=== PATIENT | male | born 1955 | race Caucasian/White ===

== ENCOUNTER 2023-06-01 06:30 | Outpatient (CLI) | payer OTHER, SELFPAY ==
--- NOTE | 2023-06-01 07:58 | W.ANESCHARGE ---
Anesthesia Charges Start Date/Time Anesthesia Start Date: 06/01/23 Anesthesia Start Time: 07:20 Stop Date/Time Anesthesia Stop Date: 06/01/23 Anesthesia Stop Time: 07:56
--- NOTE | 2023-06-01 09:52 | W.ANESCHARGE ---
Anesthesia Charges Start Date/Time Anesthesia Start Date: 06/01/23 Anesthesia Start Time: 07:20 Stop Date/Time Anesthesia Stop Date: 06/01/23 Anesthesia Stop Time: 07:56
== END 2023-06-01 06:31 | disposition home or self-care (01) ==
LOC: OP CLINIC 06:32
PROVIDERS: PCP Family Medicine; Visit Provider Surgery
DX: Z12.11 Encounter for screening for malignant neoplasm of colon (principal); K63.5 Polyp of colon; K62.1 Rectal polyp; K57.30 Diverticulosis of large intestine without perforation or abscess without bleeding; K64.9 Unspecified hemorrhoids; Z86.010 Personal history of colon polyps
CPT/HCPCS: 00811; 45380; 45385; 88305; J2704

== ENCOUNTER 2025-05-03 18:20 | Emergency (ER) | payer MEDICARE, SELFPAY ==
--- OUTSIDE RECORDS SUMMARY | 2025-05-03 18:23 | XMS_ITS | Clinical Summary ---
Author Organization [employer] [facility] [employer] [facility] Address [address] [place] [address] Care Team Providers Care Litigation Support Analyst Name Role Phone Hakeem Burt MD Primary Care Provider [phone]- [phone] Allergies Active Allergy Reactions Criticality Noted Date Comments Banana *Unknown 05/25/2016 Scratchy throat Cats (Fur, Dander, Saliva) 08/08/2008 Dust Mites 08/08/2008 Mold Extracts 08/08/2008 Pollen Extracts Itching 02/17/2016 Itchy eyes, sneezing Calvin Other - Describe In Comment Field 08/22/2023 Increased mucous production Medications CETIRIZINE 10 MG TAB take 1 tablet (10 mg) by oral route once daily 0 9 Active fluticasone (50 mcg per actuation) nasal solution (FLONASE)Indica tions:Allergic rhinitis, unspecified allergic rhinitis type Inhale 1 Stryker into both nostrils once daily. 1 Bottle 0 5 Active acetaminophen (TYLENOL EXTRA STRGTH) 500 mg tablet Take 1 Tablet (500 mg) by mouth every 6 hours if needed for Pain, Headache or Temp > (Specify). Max acetaminophen dose: 4000mg in 24 hrs. 4 Active sildenafiL, pulm.hypertensi on, (REVATIO) 20 mg tabletIndicatio ns:Erectile dysfunction of organic origin Take 1-3 tablets (20-60 mg) daily as needed. Take 30 minutes to 4 hours before sexual activity. Max 100mg/24hr. 30 Tablet 2 4 Active tamsulosin 0.4 mg capsuleIndicati ons:Gross hematuria,Benig n prostatic hyperplasia, unspecified whether lower urinary tract symptoms present Take 1 Capsule (0.4 mg) by mouth once daily after a meal. 90 Capsule 5 Active Active Problems Problem Noted Date Diagnosed Date Gross hematuria 03/03/2025 Benign prostatic hyperplasia 03/03/2025 Hyperlipidemia 12/24/2020 Overweight 12/24/2020 Right nephrolithiasis 05/07/2016 Pain in joint, shoulder region 2006 Encounters Date Type Department Care Team Description 03/03/2025 2:00 PM CDT Office Visit [facility] [address] [facility] [place] [address] Duncan Fisher MD Hematuria 03/03/2025 Travel from Last 3 Months Immunizations Immunization Administration Dates Next Due AMB INFLUENZA, IIV4 (AGE=>6M OS) MDV (Flu Clinic Only) 06/28/2019 COVID-19 vaccine (iTracs 30mcg/0.3mL) PF, MDV 08/15/2020,07/25/2020 Influenza A (H1N1), Inactiva anna (Age >=3 Years) 04/09/2009 Influenza RIV4 (Age 18+ Years) PRESERV FREE 12/2021 Influenza, High-dose Inactivated 04/07/2024 Influenza, High-dose Quadriv alent Inactivated 07/05/2023 Influenza, IIV4 02/25/2021,07/20/2018,02/17/2016 Influenza, Inactivated AIIV4 (Age 65+ Years) Preserv Free 07/06/2023 Influenza,CCIIV4 PRESERV FREE 06/28/2019 Pneumococcal Conj 20-valent (Prevnar 20) 024 Pneumococcal Poly,23-Valent (Pneumovax) 07/06/19 24 RSV, Bivalent Vaccine Recons tituted (Abrysvo 120MCG/0.5mL) 07/05/2023 Rsv Unspecified Unknown Dose Vaccine 07/06/2023 Tdap 02/13/2015,11/16/2007 Zoster (Shingrix-RZV, recombinant) 02/25/2021, Family History Medical History Relation Name Comments Cancer-prostate Father 70's to erika y 80's Atrial fibrillation Mother Cancer-prostate Paternal Uncle 70's Cancer-colon No Family History Diabetes No Family History Heart attack No Family History Relation Name Status Comments Father Mother Paternal Uncle Social History Tobacco Use Types Packs/Day Years Used Date Smoking Tobacco: Never Passive Smoke Exposure: Never Smokeless Tobacco: Never Tobacco Cessation:Counseling Given: Not Answered Alcohol Use Standard Drinks/Week Comments Yes 2 (1 standard drink = 0.6 oz pur e alcohol) once a months -sometime less PHQ-2 Answer Date Recorded PHQ-2 TOTAL SCORE 0 06/14/2021 Social Connections Answer Date Recorded Do you often feel lonely or isolated from those around you? 0 03/03/2025 Alcohol Use Answer Date Recorded How often do you have a drink containing alcohol ? 1 03/03/2025 How many drinks containing a lcohol do you have on a typical day when you are drinking? 0 03/03/2025 How often do you have five or more drinks on one occasion? 0 03/03/2025 Financial Resource Strain Answer Date R ecorded Difficulty of Paying Living Expenses 3 03/03/2025 Difficulty of Paying Living Expenses Not on file 03/03/2025 Food Insecurity Answer Date Recorded Do you worry your food will run out before you are able to buy more? 1 03/03/2025 Transportation Needs Answer Date Record ed Does lack of transportation keep you from medica l appointments? 1 03/03/2025 Does lack of transportation keep you from work, meetings or getting things that you need? 1 03/03/2025 Housing Stability Answer Date Recorded What is your housing situation today? 1 03/03/2025 Utilities Answer Date Recorded Do you have trouble paying f or utilities (for example, heat, electricity, water, phone)? 1 03/03/2025 Sex and Gender Information Value Date Recorded Sex Assigned at Male 12/24/2020 9:05 AM CDT Legal Sex Male 5:26 AM MACHINE CLOTH TRIMMER Gender Identity Male 12/24/2020 9:05 AM CDT Sexual Orientation Straight 12/24/2020 9: 05 AM CDT Obstetrics History Last Filed Vital Signs Vital Sign Reading Time Taken Comments Blood Pressure 110/70 03/03/2025 2:09 PM CDT Pulse 70 03/03/2025 2:09 PM CDT Temperature 36.8 C (98.3 F) 04/20/2021 10:22 AM MACHINE CLOTH TRIMMER Respiratory Rate 11 05/12/2016 7:15 PM MACHINE CLOTH TRIMMER Oxygen Saturation 96% 08/22/2023 10:24 AM CDT Inhaled Oxygen Concentration - - Weight 93.9 kg (207 lb) 03/03/2025 2:09 PM CDT Height 171.5 cm (5' 7.52) 03/03/2025 2:09 PM CD T Body Mass Index 31.92 03/03/2025 2:09 PM CDT Plan of Treatment Health Maintenance Due Date Last Done Comments Depression screening for age 12+ 06/14/2022 06/14/2021, 12/24/2020, 07/20/2018, Additional history exists Influenza Vaccine (#1) 2025 , 07/06/2023, 03/11/2022, Additional history exists Tetanus booster 02/13/2025 02/13/2015, 11/16/2007 BMI (ht and wt on same day) for age 18+ 03/03/2026 03/03/2025, 04/12/2024, 08/22/2023, Additional history exists Lipids for age 45-75 08/10/2028 08/11/2023, 12/24/2020, 02/17/2016 Colonoscopy through age 75 06/01/2033 06/01/2023, Hepatitis C screening for age 18-79 Completed 12/24/2020 Zoster (shingles) series for age 50+ Completed 02/25/2021, 12/24/2020 Pneumococcal series for age 50+ Completed 07/06/2023, 07/05/2023 RSV vaccine for adults or Completed 07/06/2023, 07/05/2023 Hepatitis B series for 19+ Aged Out N o longer eligible based on patient's age to complete this topic Medical Devices Implanted Type Area Design Project Manager Device Identifier Shelf Expiration Date Model / Serial / Lot Stent Uret [id number] Contour - [id number] Implanted:Qty: 1 on 05/12/2016 by Jamie Mckeon MD at [facility] Right: Ureter [facility] [id number] / / [id number] Procedures Procedure Name Priority Date/Time Associated Diagnosis Comments CBC WITH AUTO DIFFERENTIAL Routine 03/03/2025 2:41 PM CDT Gross hematuria CBC WITH AUTO DIFFERENTIAL Routine 03/03/2025 2:41 PM CDT Gross hematuria BASIC METABOLIC PANEL Routine 03/03/2025 2:41 PM CDT Gross hematuria PSA TOTAL Routine 03/03/2025 2:41 PM CDT Gross hematuria URINE CULTURE Routine 03/03/2025 2:41 PM CDT Gross hematuria URINALYSIS MICROSCOPIC Routine 03/03/2025 2:41 PM CDT Gross hematuria URINALYSIS MACROSCOPIC - [facility] POC DIP ([facility]) Routine 03/03/2025 2:41 PM CDT Gross hematuria LIPID PANEL W REFLEX MEASURED LDL Routine 08/11/2023 3:30 PM MACHINE CLOTH TRIMMER Other hyperlipidemia SCAN-COLONOSCOPY 06/01/2023 12:0 0 AM MACHINE CLOTH TRIMMER ANTI HCV Routine 12/24/2020 12:29 PM CDT Need for hepatitis C screening test from Last 3 Months or Most Recently Relevant to Health Maintenance Results * POCT Urinalysis Dipstick Only [[id number]] (03/03/2025 2:41 PM CDT) SPECIFIC GRAVITY 1.020 1.001 - 1.035 03/03/2025 3:17 PM CDT [place] PROTEIN NEGATIVE NEGATIVE 03/03/2025 3:17 PM CDT [place] GLUCOSE NEGATIVE NEGATIVE 03/03/2025 3:17 PM CDT [place] KETONES NEGATIVE NEGATIVE 03/03/2025 3:17 PM CDT [place] BILIRUBIN NEGATIVE NEGATIVE 03/03/2025 3:17 PM CDT [place] OCCULT BLOOD NEGATIVE NEGATIVE 03/03/2025 3:17 PM CDT [place] NITRITE NEGATIVE NEGATIVE 03/03/2025 3:17 PM CDT [place] PH 7.0 5.0 - 8.0 03/03/2025 3:17 PM CDT [place] LEUKOCYTE ESTERASE NEGATIVE NEGATIVE 03/03/2025 3:17 PM CDT [place] Urine URINE SPECIMEN / Unknown Non-Blood / Unknown 03/03/2025 2:41 PM CDT 03/03/2025 2:41 PM CDT us Duncan Fisher MD URINE Final Result [facility] [address] [address], [place] [phone] [place] [address] [place] [address], [place] [phone] * CBC WITH AUTO DIFFERENTIAL (03/03/2025 2:41 PM CDT) WHITE BLOOD CELL COUNT 6.8 3.8 - 10.8 Thousand/u L 03/04/2025 4:08 AM CDT [facility] RED BLOOD CELL COUNT 4.98 4.20 - 5.80 Million/uL 03/04/2025 4:08 AM CDT [facility] HEMOGLOBIN 15.4 13.2 - 17.1 g/dL 03/04/2025 4:08 AM CDT [facility] HEMATOCRIT 46.1 38.5 - 50.0 % 03/04/2025 4:08 AM CDT [facility] MCV 92.6 80.0 - 100.0 fL 03/04/2025 4:08 AM CDT [facility] MCH 30.9 27.0 - 33.0 pg 03/04/2025 4:08 AM CDT [facility] MCHC 33.4 32.0 - 36.0 g/dL 03/04/2025 4:08 AM CDT [facility] Comment: For adults, a slight decrease in the calculated MCHC value (in the range of 30 to 32 g/dL) is most likely not clinically significant; however, it should be interpreted with caution in correlation with other red cell parameters and the patient's clinical condition. RDW 12.7 11.0 - 15.0 % 03/04/2025 4:08 AM CDT [facility] PLATELET COUNT 239 140 - 400 Thousand/u L 03/04/2025 4:08 AM CDT [facility] MPV 10.4 7.5 - 12.5 fL 03/04/2025 4:08 AM CDT [facility] NEUTROPHILS 60 % 03/04/2025 4:08 AM CDT [facility] LYMPHOCYTES 25.9 % 03/04/2025 4:08 AM CDT [facility] MONOCYTES 8.4 % 03/04/2025 4:08 AM CDT [facility] EOSINOPHILS 4.7 % 03/04/2025 4:08 AM CDT [facility] BASOPHILS 1.0 % 03/04/2025 4:08 AM CDT [facility] ABSOLUTE NEUTROPHILS 4080 1500 - 7800 cells/uL 03/04/2025 4:08 AM CDT [facility] ABSOLUTE LYMPHOCYTES 1761 850 - 3900 cells/uL 03/04/2025 4:08 AM CDT [facility] ABSOLUTE MONOCYTES 571 200 - 950 cells/uL 03/04/2025 4:08 AM CDT [facility] ABSOLUTE EOSINOPHILS 320 15 - 500 cells/uL 03/04/2025 4:08 AM CDT [facility] ABSOLUTE BASOPHILS 68 0 - 200 cells/uL 03/04/2025 4:08 AM CDT [facility] Blood BLOOD SPECIMEN / Unknown [facility] / Unknown 03/03/2025 2:41 PM CDT 03/03/2025 2:41 PM CDT us Duncan Fisher MD HEMATOLOGY Final Result [facility] [address] [place] [address], * URINALYSIS MICROSCOPIC [17779.1] - routine (03/03/2025 2:41 PM CDT) RBC 0-2 0-2, None Seen /HPF 03/04/2025 6:33 AM CDT [facility] WBC 0-2 0-2, 3-5, None Seen /HPF 03/04/2025 6:33 AM CDT [facility] BACTERIA None Seen None Seen, Rare, Few Bacteria/ HPF 03/04/2025 6:33 AM CDT [facility] EPITHELIAL CELLS None Seen None Seen, Few Epi/HPF 03/04/2025 6:33 AM CDT [facility] HYALINE CASTS 0-2 0-2, 3-5 /LPF 03/04/2025 6:33 AM CDT [facility] Urine URINE SPECIMEN / Unknown Non-Blood / Unknown 03/03/2025 2:41 PM CDT 03/03/2025 2:41 PM CDT Duncan Fisher MD URINE Final Result Performing Organization Address City/[facility]/ZIP Co de Phone Number [facility] [address] [place] [address], [place] * URINE CULTURE [14237.2] (03/03/2025 2:41 PM CDT) CULTURE No growth (<100 CFU/mL) 03/05/2025 9:33 AM CDT [facility] Urine URINE SPECIMEN / Unknown Non-Blood / Unknown 03/03/2025 2:41 PM CDT 03/03/2025 2:41 PM CDT Duncan Fisher MD MICROBIOLOGY Final Result [facility] [address] [place] [address], [place] * PSA TOTAL (03/03/2025 2:41 PM CDT) PSA, TOTAL 3.46 < OR = 4.00 ng/mL 03/04/2025 4:15 AM CDT [facility] Comment: The total PSA value from this assay system is standardized against the WHO standard. The test result will be approximately 20% lower when compared to the equimolar-standardized total PSA (Filiberto Smith). Comparison of serial PSA results should be interpreted with this fact in mind. This test was performed using the Siemens chemiluminescent method. Values obtained from different assay methods cannot be used interchangeably. PSA levels, regardless of value, should not be interpreted as absolute evidence of the presence or absence of disease. Blood BLOOD SPECIMEN / Unknown [facility] / Unknown 03/03/2025 2:41 PM CDT 03/03/2025 2:41 PM CDT us Duncan Fisher MD CHEMISTRY Final Result [facility] [address] [place] [address], * BASIC METABOLIC PANEL (03/03/2025 2:41 PM CDT) SODIUM 137 135 - 146 mmol/L 03/04/2025 4:47 AM CDT [facility] POTASSIUM 4.7 3.5 - 5.3 mmol/L 03/04/2025 4:47 AM CDT [facility] CARBON DIOXIDE 29 20 - 32 mmol/L 03/04/2025 4:47 AM CDT [facility] GLUCOSE 98 65 - 99 mg/dL 03/04/2025 4:47 AM CDT [facility] Comment: Fasting reference interval CALCIUM 9.5 8.6 - 10.3 mg/dL 03/04/2025 4:47 AM CDT [facility] CREATININE 0.91 0.70 - 1.35 mg/dL 03/04/2025 4:47 AM CDT [facility] BUN/CREATININE RATIO SEE NOTE: 6 - 22 (calc) 03/04/2025 4:47 AM CDT [facility] Comment: Not Reported: BUN and Creatinine are within reference range. EGFR 92 > OR = 60 mL/min/1. 73m2 03/04/2025 4:47 AM CDT [facility] UREA NITROGEN (BUN) 21 7 - 25 mg/dL 03/04/2025 4:47 AM CDT [facility] ELECTROLYTE BALANCE 7 7 - 17 mmol/L (calc) 03/04/2025 4:47 AM CDT [facility] CHLORIDE 101 98 - 110 mmol/L 03/04/2025 4:47 AM CDT [facility] Blood BLOOD SPECIMEN / Unknown [facility] / Unknown 03/03/2025 2:41 PM CDT 03/03/2025 2:41 PM CDT us Duncan Fisher MD CHEMISTRY Final Result [facility] [address] [place] [address], * LIPID PANEL W REFLEX MEASURED LDL (08/11/2023 3:30 PM MACHINE CLOTH TRIMMER) Pathologist [facility] CHOLESTEROL,TOTAL 194 100 - 199 mg/dL 08/11/2023 9:25 PM MACHINE CLOTH TRIMMER [facility] Comment: Cholesterol, Total Reference Ranges Desirable <200 mg/dL Borderline 200-239 mg/dL High >=240 mg/dL TRIGLYCERIDES 129 <150 mg/dL 08/11/2023 9:25 PM MACHINE CLOTH TRIMMER [facility] Insurance [facility] HDL CHOLESTEROL 50 >40 mg/dL 9:25 PM MACHINE CLOTH TRIMMER [facility] NON-HDL CHOLESTEROL 144 <145 mg/dl 08/11/2023 9:25 PM MACHINE CLOTH TRIMMER [facility] CHOL/HDL RATIO 3.88 <4.50 08/11/2023 9:25 PM MACHINE CLOTH TRIMMER [facility] LDL CHOLESTEROL 118 <=130 mg/dL 08/11/2023 9:25 PM MACHINE CLOTH TRIMMER [facility] VLDL CHOLESTEROL 26 <=30 mg/dL 08/11/2023 9:25 PM MACHINE CLOTH TRIMMER [facility] PROVIDER ORDERED STATUS RANDOM 08/11/2023 9:25 PM MACHINE CLOTH TRIMMER [facility] Blood BLOOD SPECIMEN / Unknown Venipuncture / Unknown 08/11/2023 3:30 PM MACHINE CLOTH TRIMMER 08/11/2023 3:36 PM MACHINE CLOTH TRIMMER us Hakeem Burt MD CHEMISTRY Final Resu lt [facility] [address] [place] [address], [place] * SCAN-COLONOSCOPY (06/01/2023 12:00 AM MACHINE CLOTH TRIMMER) us Scanner OTHER Final Result * ANTI HCV (12/24/2020 12:29 PM CDT) HEPATITIS C ANTIBODY Non-React rosa Non-React rosa 12/24/2020 6:23 PM CDT [facility] Insurance [facility] Comment:Antibodies to HCV no t detected; does not exclude the possibility of exposure to HCV. Blood BLOOD SPECIMEN / Unknown Venipuncture / Unknown 12/24/2020 12:29 PM CDT 12/24/2020 12:31 PM CDT us Juan Baldwin MD SEND OUTS Final Result [facility] [address] [place] [address], [place] from Last 3 Months or Most Recently Relevant to Health Maintenance Insurance * Guarantor: JAMIE CLEVELAND Account Type Relation to Patient Date of Phone Billing Address Third [employer] Party Liability [address] [place] [phone] COMMERCIAL Advance Directives * Full Code (Latest Code Status on File) Date Activated Date Inactivated Comments 05/12/2016 12:51 PM 05/12/2016 9:49 PM Care Teams Litigation Support Analyst Relationship Specialty Start Date End Date Labenski, Hakeem Erika, MD [address] [place] [address] PCP - General Family Practice 09/07/20
--- OUTSIDE RECORDS SUMMARY | 2025-05-03 18:23 | XMS_ITS | Data Portability ---
Author Organization [facility], [facility] Address [address] [place] VICTOR[place] [address] Care Team Providers Care Forestry Technician Name Role Phone CHRISTIANO COFFEY Primary Care Provider Assessment No assessment recorded. Plan of Treatment Reminders Order Date Submit Date Provider Last Modified By Organization Details Last Modified Time Details Appointments None recorded . Lab PSA, serum or plasma 2023 024 [email or web address] [facility], [address], [place], [address], 5 10:05:54 urinalys is, dipstick 2023 024 [facility], [address], [place], [address], 4 13:50:42 PSA, serum or plasma 2023 024 [email or web address] [facility], [address], [place], [address], 4 14:45:20 Referral None recorded . Procedures None recorded . Surgeries None recorded . Imaging XR, kidney + ureter + bladder 2023 024 [email or web address] [facility] , [address], [place], [address], 4 15:43:19 Medication Orders None recorded . Patient TargetsNo targets recorded. Patient Instructions Encounter Date Encounter Id Patient Instructions Last Modified By Organization Details Last Modified Time 06/09/2023 [id number] Jamie and I discussed his kidney stone history, we'll update with KUB, and obtain PSA given his changing LUTS. We'll reconvene for results by phone, in office if needed. Not available 06/09/2023 13:50:38 07/13/2023 [id number] Jamie has small volume bilateral kidney stones - we reviewed his options, including elective ESWL - he'll observe for now. Could be a good left ESWL candidate if/when. We discussed the significance of an elevated PSA and its utility in screening for prostate cancer (with screening in this case being defined as using PSA in the total absence of symptoms and ROS changes). We discussed that while PSA may be elevated in some men due to benign causes such as trauma, recent sexual intercourse, urinary tract infections, or recent instrumentation, it may also be indicative of prostate cancer. We reviewed that utilizing PSA velocity or PSA peak/trough to estimate the presence, absence or severity of disease can be hazardous or incorrect. We discussed that a PSA test alone is not sufficient to determine if prostate cancer is present and further testing may be warranted. We also reviewed the concepts of over diagnosis and over treatment as they relate to PSA screening. We will work hard to balance the pros and cons of PSA screening. We then reviewed the available options for further evaluation. One option would be to proceed with a transrectal ultrasound and prostate needle biopsy, which is the gold standard. This would allow for the detection of meaningful prostate cancer, if present. We discussed the limitations of this, including under sampling, which may lead to under diagnosis. We also discussed the risks, most notably bleeding to a degree enough to require intervention (1-2.5%) and infection which may result in hospitalization (1-3%). We also discussed expected after effects of biopsy including temporary hematuria, blood per rectum, and hematospermia which are considered normal and self-resolve. A second option we discussed would be to proceed first with an MRI of the prostate. This would allow for detection of underlying lesions of the prostate which are suspicious for cancer. This information could then be utilized for ultrasound-MRI fusion biopsies which may result in improved detection of underlying prostate cancer and also facilitate [facility] surveillance for men in which low risk prostate cancers are identified. We then discussed the role of adjunctive testing in the form (4k score or ExoDx) to help better inform risk profile. While these tests do not tell us whether he has prostate cancer or not, they may be helpful in making a decision about whether to proceed with tissue sampling or imaging. He wishes to return in late Sep 2023 to recheck / trend PSA. We'll arrange this. Not available 07/13/2023 10:35:07 03/25/[id number] - reviewed the rectal, prostate, hernia, gallstone findings. He is feeling better and I told him if anything changes for the worse to report to his PCP or me. He'll see me next year routinely for BPH and kidney stone follow up, as well as PSA recheck. He'll check his PSA in the [facility] this winter, per my recommendation. 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 Not available 03/25/2024 16:05:18 Reason for Referral None Reported. Results Created Date Observation Date Name Description Value Unit Range Abnormal Flag Note LastModifiedBy Organization Detail LastModifiedTime 06/09/19 24 06/09/2023 PSA, serum or plasm a PSA 5.2 ng/ml 0-4.0 Not Available [facility] [address], [place], [address], 06/09/2023 13:00:51 06/09/19 24 06/09/2023 urina lysis , dipst ick Color-Status Yellow Not Available [facility] [address], [place], [address], 06/09/2023 12:44:43 06/09/19 24 06/09/2023 urina lysis , dipst ick Clarity-Stat us Clear Not Available [facility] [address], [place], [address], 06/09/2023 12:44:43 06/09/19 24 06/09/2023 urina lysis , dipst ick Nitrates-Sta tus negati ve Not Available [facility] [address], [place], [address], 06/09/2023 12:44:43 06/09/19 24 06/09/2023 urina lysis , dipst ick Blood-Status Negati ve Not Available [facility] [address], [place], [address], 06/09/2023 12:44:43 06/09/19 24 06/09/2023 urina lysis , dipst ick Leuko-Status Negati ve Not Available [facility] [address], [place], [address], 06/09/2023 12:44:43 06/09/19 24 06/09/2023 urina lysis , dipst ick Specimen Type Voided Not Available [facility] [address], [place], [address], 06/09/2023 12:44:43 06/09/19 24 06/09/2023 XR, kidne y + urete r + bladd er EXAM: XR, KIDNEY + URETER + BLADDE R LOCATI ON: [facility] DATE: 06/09/19 INDICA TION: Calcul us of kidney COMPAR ETTA: None. IMPRES MERRY: Possib le 6 mm left and 2 mm right renal stones . Pelvic phlebo liths. The bowel gas patter n is normal . No aggres sive osseou s lesion . This report was electr onical ly interp reted by: Valentina Luna MD on 2023 at 14:38 [facility] [place] [address], [place], [address], 06/12/2023 14:26:50 03/21/20 24 03/20/2024 CT, abdom en + pelvi s, w/o contr ast EXAM: CT, ABDOME N + PELVIS , W/O CONTRA ST [facility]ATI [facility]: [facility] DATE: 2023 INDICA TION: Unspec ified abdomi nal pain COMPAR ETTA: None. TECHNI QUE: CT scan of the abdome n and pelvis was perfor med withou t IV contra st. Multip lanar reform ats were obtain ed. Dose reduct ion techni ques were used. CONTRA ST: None. FINDIN GS: LOWER CHEST: Subseg mental atelec tasis is seen in the lung bases. HEPATO BILIAR Y: No focal hepati c lesion is seen. Cholel ithias is is presen t within the gallbl adder. PANCRE : No signif icant mass, duct dilata tion, or inflam matory change . SPLEEN : Normal size. ADRENA L GLANDS : No signif icant nodule s. KIDNEY S/BLAD ALONSO: 3 mm nonobs tructi ve calcul us is seen along the lower pole of the right kidney . No hydron ephros is is seen. Urinar y bladde r is modera tely disten ded. BOWEL: No eviden ce of bowel obstru ction is seen. Mild wall thicke peter is noted along the lower rectum and descen ding colon, likely due to underd istent ion given lack of surrou nding inflam matory change s. LYMPH NODES: No lympha denopa thy. VASCUL ATURE: Scatte red vascul ar calcif icatio ns are presen t within the abdomi nal aorta. PELVIC ORGANS : Prosta te gland is enlarg ed measur ing 5.1 cm in transv erse diamet er. Small fat-co ntaini ng left inguin al hernia is presen t. MUSCUL OSKELE TIFFANY: Multil evel degene rative change s are presen t in the spine. IMPRES MERRY: 1. 3 mm nonobs tructi ve calcul us is seen along the lower pole of the right kidney . No hydron ephros is or obstru ctive renal/ ureter al calcul i. 2. Prosta tomega ly. 3. Mild wall thicke peter is noted along the lower rectum and descen ding colon, likely due to underd istent ion . Procto coliti s is unlike ly given lack of surrou nding inflam matory change s. Sugges t clinic al correl ation. This report was electr onical ly interp reted by: Kamran Page MD on 2023 at 08:32 [facility] [place] [address], [place], [address], 03/26/2024 13:48:22 Result Notes Documentation Provider Name and Address Organization Details Recorded Time Xr, Kidney + Ureter + Bladder : EXAM: XR, KIDNEY + URETER + BLADDER LOCATION: [facility] DATE: 06/09/2023 INDICATION: Calculus of kidney COMPARISON: None. IMPRESSION: Possible 6 mm left and 2 mm right renal stones. Pelvic phleboliths. The bowel gas pattern is normal. No aggressive osseous lesion. This report was electronically interpreted by: Jorge Luna MD on 06/09/2023 at 14:[address] [facility] [place] [facility] 06/12/2023 14:26:50 Ct, Abdomen + Pelvis, W/o Contrast : EXAM: CT, ABDOMEN + PELVIS, W/O CONTRAST LOCATION: [facility] DATE: 03/20/2024 INDICATION: Unspecified abdominal pain COMPARISON: None. TECHNIQUE: CT scan of the abdomen and pelvis was performed without IV contrast. Multiplanar reformats were obtained. Dose reduction techniques were used. CONTRAST: None. FINDINGS: LOWER CHEST: Subsegmental atelectasis is seen in the lung bases. HEPATOBILIARY: No focal hepatic lesion is seen. Cholelithiasis is present within the gallbladder. PANCREAS: No significant mass, duct dilatation, or inflammatory change. SPLEEN: Normal size. ADRENAL GLANDS: No significant nodules. KIDNEYS/BLADDER: 3 mm nonobstructive calculus is seen along the lower pole of the right kidney. No hydronephrosis is seen. Urinary bladder is moderately distended. BOWEL: No evidence of bowel obstruction is seen. Mild wall thickening is noted along the lower rectum and descending colon, likely due to underdistention given lack of surrounding inflammatory changes. LYMPH NODES: No lymphadenopathy. VASCULATURE: Scattered vascular calcifications are present within the abdominal aorta. PELVIC ORGANS: Prostate gland is enlarged measuring 5.1 cm in transverse diameter. Small fat-containing left inguinal hernia is present. MUSCULOSKELETAL: Multilevel degenerative changes are present in the spine. IMPRESSION: 1. 3 mm nonobstructive calculus is seen along the lower pole of the right kidney. No hydronephrosis or obstructive renal/ureteral calculi. 2. Prostatomegaly. 3. Mild wall thickening is noted along the lower rectum and descending colon, likely due to underdistention . Proctocolitis is unlikely given lack of surrounding inflammatory changes. Suggest clinical correlation. This report was electronically interpreted by: Kamran Page MD on 03/21/2024 at 08:32 Mathew Melo MD [address] [place] [address],[address], [place], [address], [facility] 03/26/2024 13:48:22 Problems Name Problem SNOMED Code Status Onset Date Resolution Date Notes Provider Name and Address Organization Details Recorded Time Kidney stone 95332475 Active 2023 Mathew diaz MD [address] [place] [address],[address], [place], [address], [facility] 4 13:49:45 Lower urinary tract symptoms due to benign prostatic hypertrophy 0645130749898 1 Active 2023 Mathew diaz MD [address] [place] [address],[address], [place], [address], [facility] 4 13:49:56 Prostate specific antigen above reference range 515459482 Active 2023 Mathew diaz MD [address] [place] [address],[address], [place], [address], [facility] 4 10:28:23 Right flank pain 614118746 Active 2023 Mathew diaz MD [address] [place] [address],[address], [place], [address], [facility] 4 10:49:22 Left inguinal hernia 817096046 Active 2023 Mathew diaz MD [address] [place] [address],[address], [place], [address], [facility] 4 15:59:07 Cholelithia sis without obstruction 56898666 Active 2023 Mathew diaz MD [address] [address], [place], [address] 15:59:20 Problem Notes None recorded. Procedures Surgical History Date Name Laterality Status Provider Name and Address Organization Details Recorded Time 06/09/19 24 SHUTTLE FINAL INSPECTOR/blood draw [facility]23 13:00:43 06/01/20 23 colonoscopy completed [facility] 06/09/2023 12:31:37 Imaging Results None recorded. Procedure Notes None recorded. Medical Equipment None Reported. Allergies No known drug allergies Medications Name Sig Start Date Stop Date Status Note LastModified by Organization Details LastModified Time Benadryl active Not Available Not Avai lable Not Available Vitals Date Recorded Body height Body mass index (BMI) Body weight Provider Name and Address Organization Details Last Updated DateTime 06/09/2023 177.8 cm 30.7 kg/m2 69201.77 g [facility] 06/09/2023 12:28:35 Date Recorded Body height Body mass index (BMI) Body weight Provider Name and Address Organization Details Last Updated DateTime 07/13/2023 177.8 cm 30.3 kg/m2 09279.99 g Maida Greer [facility] 07/13/2023 10:20:28 Date Recorded Body height Body mass index (BMI) Body weight Provider Name and Address Organization Details Last Updated DateTime 03/25/2024 177.8 cm 30.3 kg/m2 76711.99 g Erika Anders [facility] 03/25/2024 12:58:19 Social History Question Answer Notes LastModified by Organizat ion Details LastModified Time Tobacco Smoking Status Never Smoker Vicki Friedmanelizabeth [facility] 06/09/2023 12:31:17 What Is Your Level Of Caffeine Consumption? Occasional Information not available 06/09/2023 Race White Information no t available 03/25/2024 Ethnicity Not / Information not available 07/13/2023 Preferred Language Israeli Information not available 07/13/2023 What Was The Date Of Your Most Recent Tobacco Screening? 03/25/2024 Information not available 03/25/2024 Sex: Unknown Functional Status Question Answer Note LastModified by Organizat ion Details LastModified Time What is your level of alcohol consumption? Occasional Information not available 06/09/2023 Mental Status None recorded. Family History Relationship Description Onset Age of this Age Resolved Age Notes LastModified by Organization Details LastModified Time Father Family history of malignant neoplasm of prostate kosterbauer Not available 10/2023 12:30:33 Paternal Uncle Family history of malignant neoplasm of prostate kosterbauer Not available 10/2023 12:30:44 Medical History Condition Response Kidney Stones Y Immunizations Vaccine Type Date Status Note Provider Nam e and Address Organization Details Recorded Time Influenza, recombinant, quadrivalent, PF 03/11/2022 completed Vicki carrillo [facility] 06/09/2023 12:28:41 zoster recombinant 12/24/2020 completed Vicki carrillo [facility] 06/09/2023 12:28:41 zoster recombinant 02/25/2021 completed Vicki carrillo [facility] 06/09/2023 12:28:41 COVID-19, mRNA, LNP-S, PF, 30 mcg/0.3 mL dose 07/25/2020 completed Vicki carrillo [facility] 06/09/2023 12:28:41 COVID-19, mRNA, LNP-S, PF, 30 mcg/0.3 mL dose 08/15/2020 completed Vicki carrillo [facility] 06/09/2023 12:28:41 COVID-19, mRNA, LNP-S, bivalent, PF, 30 mcg/0.3 mL dose 03/11/2022 completed Vicki carrillo [facility] 06/09/2023 12:28:41 Tdap 11/16/2007 [facility] 12:28:41 Tdap 02/13/2015 completed Vicki carrillo [facility] 06/09/2023 12:28:41 Novel [id number] 04/09/2009 completed VickiMARIA VICTORIA [facility] 06/09/2023 12:28:41 Influenza, split virus, quadrivalent, PF 07/20/2018 completed Vicki carrillo [facility] 06/09/2023 12:28:41 Influenza, split virus, quadrivalent, PF 02/17/2016 completed Vicki carrillo [facility] 06/09/2023 12:28:41 Influenza, split virus, quadrivalent, PF 02/25/2021 completed Vicki carrillo [facility] 06/09/2023 12:28:41 Past Encounters Encounter ID Performer Location Encounter Start Date Encounter Closed Date Diagnosis/Indication Diagnosis SNOMED-CT Code Diagnosis ICD10 Code Diagnosis IMO Codes Diagnosis Note [id number] MD DONOVAN [facility] [address] [place] [address] 06/09/2023 11:58:33 06/15/2023 15:43:19 Kidney stone 43417625 N20.0 Lower urin an tract symptoms due to benign prostatic hypertrophy 1181482713 9101 N40.1 [id number] MD DONOVAN [facility] [address] [place] [address] 07/13/2023 10:16:05 07/18/2023 10:24:40 Kidney stone 68732930 N20.0 Prostate s pecific antigen above reference range 060328576 R97.20 [id number] [facility] [address] [place] [address] 03/25/2024 12:57:48 03/26/2024 09:34:53 Kidney stone 18475299 N20.0 Lower urin an tract symptoms due to benign prostatic hypertrophy 6604562874 9101 N40.1 Left inguinal hernia 236 368164 K40.90 Cholelithi asis without obstruction 32064279 K80.20 Prostate s pecific antigen above reference range 164330511 R97.20 Health Concerns Section Related Observation LastModified by Organization Detai ls LastModified Time None Recorded Concern Status LastModified by Organization Details LastModified Time None Recorded Advance Directives Directive None Recorded Payers Insurance Date Sequence Insurance Name Policy Number Policy Singh Covered Member ID Singh Member ID Guarantor Name 03/19/2024 1 [place] [id number] Abi Arce [id number] [place] 04/13/2024 2 UNSPECIFIED REMIT PAYOR [place] 03/19/2024 1 [place] [employer] [facility] Jamie [place] [id number] Jamie Solorio Fried 03/19/2024 1 [place] [id number] Jamie [place] 03/19/2024 1 [place] [id number] Jamie [place] Notes Date Note Type Note Provider Name and Address Organization Details Recorded Time 06/09/2023 text/html 67M presents for new consultation for kidney stones, BPH/LUTS, PSA. Saw PF in [facility] many years ago for chronic kidney stones, required URS, has passed 1-2 in the last few years. Hydrates, low sodium, current plan. Also reports some worsening weak stream, intermittency, frequency, no dysuria/GH. UA WNL today. QOL reasonable. No PSA screening noted. MARIA VICTORIA [facility] 06/09/2023 14:46:00 07/13/2023 text/html Prior to conducting our telephone visit, the patient was apprised of the risks, benefits and alternatives to telephone visits including but not limited to poor audio quality, interrupted visits due to technological limitations, delays in medical evaluation and treatment due to deficiencies or failures of equipment, failure of security protocols resulting in a breach of privacy of personal medical information and a lack of access to complete medical records resulting in not fully informed. It was not possible for the patient to sign the privacy regulations, HIPAA release and assignment of benefits forms. The patient was given the opportunity to ask questions about these policies and gave verbal acknowledgement and approval of these policies as well as to hold this meeting by telephone. Lastly, the patient agreed to allowing their medication history to be pulled from a national pharmacy database to facilitate and coordinate their care. TOTAL VISIT TIME: 19 MINUTES. 67M presents for FOLLOW UP for kidney stones, BPH/LUTS, PSA. Saw PF in [facility] many years ago for chronic kidney stones, required URS, has passed 1-2 in the last few years. Hydrates, low sodium, current plan. Also reports some worsening weak stream, intermittency, frequency, no dysuria/GH. UA WNL today. QOL reasonable. No prior PSA screening info sent over. With us: 5.2. KUB Jun 2023 shows 6mm left kidney stone, possibly 2mm right kidney stone. Mathew Melo MD [address], [place], [address], [facility] 07/13/2023 10:35:53 03/25/2024 text/html Prior to conducting our telephone visit, the patient was apprised of the risks, benefits and alternatives to telephone visits including but not limited to poor audio quality, interrupted visits due to technological limitations, delays in medical evaluation and treatment due to deficiencies or failures of equipment, failure of security protocols resulting in a breach of privacy of personal medical information and a lack of access to complete medical records resulting in not fully informed. It was not possible for the patient to sign the privacy regulations, HIPAA release and assignment of benefits forms. The patient was given the opportunity to ask questions about these policies and gave verbal acknowledgement and approval of these policies as well as to hold this meeting by telephone. Lastly, the patient agreed to allowing their medication history to be pulled from a national pharmacy database to facilitate and coordinate their care. TOTAL VISIT TIME: 16 MINUTES 68M presents for FOLLOW UP for kidney stones, BPH/LUTS, PSA. CT 03/20/2024 showed well appearing kidneys, minimal calcification (right and left). Had been having some RLQ and right hip area discomfort over the past few weeks, feels better this week though. Did review his left inguinal hernia, and gallstones as well.Saw PF in [facility] many years ago for chronic kidney stones, required URS, has passed 1-2 in the last few years. Hydrates, low sodium, current plan.Also reports some worsening weak stream, intermittency, frequency, no dysuria/GH. UA WNL today. QOL reasonable.No prior PSA screening info sent over. With us was 5.2, rechecked Aug 2023 at 3.31.KUB Jun 2023 showed 6mm left kidney stone, possibly 2mm right kidney stone. Mathew Melo MD [address], [place], [address], [facility] 03/25/2024 16:05:42
[2025-05-03 18:24] VITALS: BP 158/99; PULSE 93; RESP 18; TEMP 36.4; O2SAT 96; BMI 29.7
--- NOTE | 2025-05-03 18:29 | XR_ITS ---
Patient: CATHERINE ELAM Facility:?[facility] [place] [facility] Patient ID:?[id number] Site Patient ID:?[id number]. Site :?[id number] Study:?XRay-Extremity Left ANKLE 3V-05/03/2025 6:51:40 PM Ordering Physician:?PROVIDER TEMP Final Report: INDICATION: Fall and left ankle, felt a pop TECHNIQUE: Chest 1 views. COMPARISON: None. FINDINGS: Osseous structures: No acute fracture or dislocation of the left ankle. Soft tissues: There is circumferential soft tissue swelling around the left ankle. IMPRESSION: No acute fracture or dislocation of the left ankle. Circumferential soft tissue swelling around the left ankle. Dictated by Steve Walsh MD @ 05/03/2025 7:18:00 PM (Electronic Signature)
--- NOTE | 2025-05-03 19:42 | ED.LOWEXIN ---
HPI - Extremity Injury (Lower) General Chief Complaint: Extremity Pain/Injury, Lower Stated Complaint: L ankle injury- heard a snap Time Seen by Provider: 05/03/25 18:50 History of Present Illness HPI Narrative: This 69-year-old male comes in with an injury to his left ankle. He was walking a short cut to the neighbor's yd down a hill to help with starting this no throat or. He slipped along the way and twisted his left ankle. He states that he felt and heard a pop when this occurred. He was able to get up and ambulate on his legs after this injury. He does not report any other injury. Related Data Home Medications ?Medication ?Instructions ?Recorded ?Confirmed saw palmetto 160 mg capsule 160 mg PO BID 03/20/23 04/21/25 ibuprofen [Advil] PO 04/21/25 04/21/25 tamsulosin 0.4 mg capsule mg PO DAILY 04/21/25 04/21/25 Allergies Allergy/AdvReac Type Severity Reaction Status Date / Time banana Allergy Mild Difficulty Verified 03/20/23 15:16 Swallowing cat dander Allergy Mild Unknown Verified 03/20/23 15:16 Review of Systems Status of ROS: Reports: 10 or more systems reviewed and unremarkable except as noted in History and below Narrative: Constitutional: No fevers, no weight gain or loss. Eyes: No discharge. No vision changes. HENT: No congestion, no sore throat, no ear pain. Cardiovascular: No chest pain, no palpitations. Respiratory: No shortness of breath, no wheezes, no cough. Gastrointestinal: No abdominal pain, no vomiting, no diarrhea. Genitourinary: No dysuria, no hematuria. Musculoskeletal: Left ankle injury as described above. Skin: No rashes, no pruritis. Neurological: No dizziness, weakness, sensory change, speech change. Endo/Heme/Allergies: No bruising or bleeding. No polydipsia. Pysch: no suicidality, no anxiety, no insomnia. All other systems reviewed and are negative. Exam Narrative: Exam Narrative: Constitutional: Well-developed, well-nourished, no acute distress. HEENT: Normocephalic, atraumatic. Neck: Normal range of motion. Nontender. Supple. Heart: Regular. No murmurs. Normal rate. Intact distal pulses. Lungs: Clear to auscultation. No chest discomfort. No wheezes, rhonchi, or rales. Abdomen: Normal bowel sounds. Nontender. No rebound tenderness. Genitalia: Deferred. Back: No midline tenderness. Normal range of motion. Extremities: Tenderness on the lateral aspect of the left ankle with mild to moderate swelling in this area. No ligament instability. Skin: Intact. No rash. Warm. No erythema or pallor. Neurologic: No altered sensation. No weakness. Alert and oriented. Psychiatric: No suicidality. No anxiety or depression. No insomnia. Nursing notes and vitals signs are reviewed. Const: Vital Signs, click to edit/add: Vital Signs - 24 hr 05/03/25 18:24 Temperature 97.5 F L Pulse Rate [Pulse Oximeter] 93 Respiratory Rate 18 Blood Pressure [Ri ght Upper Arm] 158/99 H Pulse Oximetry 96 Oxygen Delivery Me thod Room Air Course Vital Signs Vital signs: Initial Vital Signs Temperature 97.5 F L 05/03/25 18:24 Temperature Source Temporal Artery Scan 05/03/25 18:24 Pulse Rate 93 05/03/25 18:24 Pulse Rhythm Regular 05/03/25 18:24 Respiratory Rate 18 05/03/25 18:24 Blood Pressure 158/99 H 05/03/25 18:24 Blood Pressure Mean 118 H 05/03/25 18:24 Blood Pressure Position Sitting 05/03/25 18:24 Pulse Oximetry 96 05/03/25 18:24 Oxygen Delivery Method Room Air 05/03/25 18:24 Vital Signs Temperature 97.5 F L 05/03/25 18:24 Pulse Rate 93 05/03/25 18:24 Respiratory Rate 18 05/03/25 18:24 Blood Pressure 158/99 H 05/03/25 18:24 Pulse Oximetry 96 05/03/25 18:24 Oxygen Delivery Method Room Air 05/03/25 18:24 Temperature 97.5 F L 05/03/25 18:24 Pulse Rate 93 05/03/25 18:24 Respiratory Rate 18 05/03/25 18:24 Blood Pressure 158/99 H 05/03/25 18:24 Pulse Oximetry 96 05/03/25 18:24 Oxygen Delivery Method Room Air 05/03/25 18:24 MDM - Extremity Injury (Lower) MDM Narrative Medical decision making narrative: This patient comes in for evaluation of a left ankle injury. X-ray is obtained and shows no for sign of fracture. The patient is able to ambulate and declines any need for crutches or medicines. He states that he will use ibuprofen or Tylenol as needed and directed. Discharge Plan Discharge Clinical Impression: Ankle sprain and strain Patient Disposition: Home, Self-Care Condition: Stable Additional Instructions: Increase activity as tolerated. Use [id number] medicines as needed and directed. Follow up with MD return if worsening. Prescriptions: No Action tamsulosin 0.4 mg capsule PO DAILY ibuprofen [Advil] PO saw palmetto 160 mg capsule 160 mg PO BID Rx Instructions: give with meal/snack Follow Up/Referrals: Hakeem Burt MD [Primary Care Provider, Family Practice] Stand Alone Forms: [employer] Info Instructions
== END 2025-05-03 19:57 | disposition home or self-care (01) ==
LOC: ED 19:46
PROVIDERS: Emergency Provider Emergency Medicine Emergency Medical Services; PCP Family Medicine
DX: S93.402A Sprain of unspecified ligament of left ankle, initial encounter (principal); X50.1XXA Overexertion from prolonged static or awkward postures, initial encounter
CPT/HCPCS: 73610; 99283; 99284